=== PATIENT | female | born 1985 | race African-American/Black ===

== ENCOUNTER 2024-12-28 23:44 | Emergency (ER) | payer OTHER ==
[~2024-12-28] VITALS: Ht 167.6 cm; Wt 63.5 kg
[2024-12-29] MEDS ORDERED: KETOROLAC TROMETHAMINE INJ 30 MG/ML VIAL ONE (00:38)
[2024-12-29] MEDS: IV NS 0.9% 1,000 ML IV ONE (00:51)
[2024-12-29 00:52] LABS: APPEARANCE,URINE CLEAR (CLEAR); BLOOD, URINE NEGATIVE Ery/uL (NEGATIVE); LEUKOCYTE ESTERASE ,URINE NEGATIVE (NEGATIVE); NITRITE, URINE NEGATIVE (NEGATIVE); UGLUCOSE NEGATIVE (NEGATIVE)
[2024-12-29 00:54] LABS: PLATELET COUNT (AUTO) 336 K/uL (150-450); RED BLOOD CELL COUNT(AUTO) 4.12 MIL/uL (4.0-5.2); RED CELL DISTRIBUTION WIDTH 14.9 % (11.5-15.0); WHITE BLOOD COUNT (AUTO) 8.7 K/uL (4.3-11.0)
[2024-12-29 00:56] LABS: PREGNANCY TEST URINE QUAL NEGATIVE (NEGATIVE)
[2024-12-29 01:08] LABS: ADD URINE CULTURE YES; SQUAMOUS EPITHELIAL CELL,UR 21-50 /HPF (None Seen)
[2024-12-29] MEDS: KETOROLAC TROMETHAMINE INJ 30 MG/ML VIAL IV ONE (01:22)
[2024-12-29 01:32] LABS: BARBITURATE, URINE NEGATIVE (NEGATIVE); BENZODIAZEPINE, URINE NEGATIVE (NEGATIVE); COCCAINE, URINE NEGATIVE (NEGATIVE); OPIATE, URINE NEGATIVE (NEGATIVE)
[2024-12-29 01:33] LABS: AMPHETAMINE, URINE POSITIVE (NEGATIVE); CANNABINOID, URINE POSITIVE (NEGATIVE)
[2024-12-29 01:38] LABS: CALCIUM, SERUM 8.4 mg/dL (8.5-10.1); CREATININE 0.8 mg/dL (0.6-1.3); SODIUM SERUM 141 mmol/L (136-145); UREA NITROGEN, BLOOD 20 mg/dL (7-18)
[2024-12-29 01:44] LABS: ALCOHOL, BLOOD < 3 mg/dL (0-10); ASPARTATE AMINOTRANSFERASE 16 U/L (15-37); TOTAL PROTEIN, SERUM 6.8 g/dL (6.4-8.2)
[2024-12-29] MEDS ORDERED: MAGNESIUM CITRATE 296 ML BOTTLE ONE (04:29)
[2024-12-29] MEDS: MAGNESIUM CITRATE 296 ML BOTTLE PO ONE (04:29)
[2024-12-29 04:30] VITALS: BP 96/67; TEMP 98.1; O2SAT 98
== END 2024-12-29 04:30 | disposition home or self-care (01) ==
LOC: ER 23:48
DX: R10.31 Right lower quadrant pain (principal); R10.20 Pelvic and perineal pain unspecified side; I10 Essential (primary) hypertension; Z79.899 Other long term (current) drug therapy; Z60.2 Problems related to living alone
CPT/HCPCS: 99285; 96374; 96361; 76856; 74176; 85025; 87086; 83690; 84703; 81001; 36415; 80053; 80320; 80307; J1885; J7030; G0480